=== PATIENT | male | born 1990 | race American Indian/Alaskan Native ===

== ENCOUNTER 2019-09-21 18:10 | Emergency (ER) | payer BC, OTHER ==
[2019-09-21 18:19] VITALS: BP 163/112
--- NOTE | 2019-09-21 18:22 | Emergency Department Report ---
- General Chief Complaint: Upper Respiratory Infection Stated Complaint: FLU SX Time Seen by Provider: 09/21/19 18:17 Source: patient Mode of arrival: Ambulatory Limitations: No Limitations - History of Present Illness Initial Comments: pt is a 29 yo male who presents to the ED with c/o flu symptoms that began two days ago. he has associated cough, congestion, fever, chills, generalized body aches. he denies any ear pain, no productive cough. PMHx PUD, HTN. pt states he has not taken his BP medicine in two days. he only has an allergy to aspirin. +smoker. he states that both of his daughters tested positive for the flu by nasal swab. - Related Data Previous Rx's Medication Instructions Recorded Last Taken Type Oseltamivir [Tamiflu] 75 mg PO BID 5 Days #10 cap 09/21/19 Unknown Rx Allergies Allergy/AdvReac Type Severity Reaction Status Date / Time aspirin Allergy Unknown Verified 09/21/19 18:15 ED Review of Systems ROS: Stated complaint: FLU SX Other details as noted in HPI Comment: All other systems reviewed and negative ED Past Medical Hx - Medications Home Medications: Home Medications Medication Instructions Recorded Confirmed Last Taken Type Oseltamivir [Tamiflu] 75 mg PO BID 5 Days #10 cap 09/21/19 Unknown Rx ED Physical Exam - General Limitations: No Limitations General appearance: alert, in no apparent distress - Head Head exam: Present: atraumatic, normocephalic - Eye Eye exam: Present: normal appearance, PERRL, EOMI - ENT ENT exam: Present: normal orophraynx, mucous membranes moist, TM's normal bilaterally, normal external ear exam, other (erythema and clear nasal drainage bilaterally ) - Neck Neck exam: Present: full ROM. Absent: meningismus - Respiratory Respiratory exam: Present: normal lung sounds bilaterally. Absent: respiratory distress, wheezes, rales, rhonchi, stridor, chest wall tenderness, accessory muscle use, decreased breath sounds, prolonged expiratory - Cardiovascular Cardiovascular Exam: Present: regular rate, normal rhythm, normal heart sounds. Absent: systolic murmur, diastolic murmur, rubs, gallop - Neurological Exam Neurological exam: Present: alert, oriented X3 - Psychiatric Psychiatric exam: Present: normal affect, normal mood - Skin Skin exam: Present: warm, dry, intact ED Course Vital Signs 11/24/19 18:17 Temperature 100.1 F H Pulse Rate 109 H Respiratory 20 Rate Blood Pressure 163/112 O2 Sat by Pulse 97 Oximetry ED Medical Decision Making - Medical Decision Making pt is a 29 yo male who presents to the ED with c/o flu symptoms that began two days ago. he has associated cough, congestion, fever, chills, generalized body aches. he denies any ear pain, no productive cough. PMHx PUD, HTN. pt states he has not taken his BP medicine in two days. he only has an allergy to aspirin. +smoker. he states that both of his daughters tested positive for the flu by nasal swab. on exam: erythema and clear nasal drainage bilaterally, breath sounds clear bilaterally without w/r/r. pt has clinical s/sx of influenza with sick contact. will tx pt with tamiflu. advised pt to please take his BP medication as prescribed by his PCP, pt states that he does have plenty of his BP medication. advised pt please take medication as prescribed. increase your fluid intake over the next several days. take tylenol or ibuprofen for a temperature of 100.4 or greater. may drink warm tea, warm soup broth, get plenty of rest. follow up with a primary care doctor in the next 2-3 days for reevaluation. return to the emergency room for any new or worsening symptoms. Critical care attestation.: If time is entered above; I have spent that time in minutes in the direct care of this critically ill patient, excluding procedure time. ED Disposition Clinical Impression: Influenza, Elevated blood pressure reading Disposition: DC- TO HOME OR SELFCARE Is pt being admited?: No Does the pt Need Aspirin: No Condition: Stable Instructions: Influenza (ED) Additional Instructions: please take medication as prescribed. increase your fluid intake over the next several days. take tylenol or ibuprofen for a temperature of 100.4 or greater. may drink warm tea, warm soup broth, get plenty of rest. follow up with a primary care doctor in the next 2-3 days for reevaluation. return to the emergency room for any new or worsening symptoms. Prescriptions: Oseltamivir [Tamiflu] 75 mg PO BID 5 Days #10 cap Referrals: [facility] [Provider Group] - 2-3 Days Forms: Work/School Release Form(ED) Time of Disposition: 18:24 Print Language: MALIAN
== END 2019-09-21 18:52 | disposition home or self-care (01) ==
LOC: ED 18:10
DX: J11.1 Influenza due to unidentified influenza virus with other respiratory manifestations (principal); R03.0 Elevated blood-pressure reading, without diagnosis of hypertension; Z88.6 Allergy status to analgesic agent
CPT/HCPCS: 99282